=== PATIENT | male | born 1980 | race Caucasian/White ===

== ENCOUNTER 2016-09-01 15:17 | Emergency (ER) | payer OTHER ==
[2016-09-01 15:46] VITALS: BP 130/97
== END 2016-09-01 15:46 | disposition home or self-care (01) ==
LOC: ED 15:17
DX: T18.128A Food in esophagus causing other injury, initial encounter (principal); X58.XXXA Exposure to other specified factors, initial encounter; Y93.89 Activity, other specified; Y99.8 Other external cause status; Y92.89 Other specified places as the place of occurrence of the external cause

== ENCOUNTER 2017-04-26 09:27 | Emergency (ER) | payer OTHER ==
[~2017-04-26] VITALS: Ht 188 cm; Wt 98.4 kg
[2017-04-26 09:34] VITALS: BP 148/70; Ht 188 cm; Wt 98.4 kg
== END 2017-04-26 11:25 | disposition left against medical advice (07) ==
LOC: ED 09:27
DX: Z53.21 Procedure and treatment not carried out due to patient leaving prior to being seen by health care provider (principal)

== ENCOUNTER 2019-08-28 18:40 | Emergency (ER) | payer OTHER ==
[~2019-08-28] VITALS: Ht 185.4 cm; Wt 99.8 kg
[2019-08-28 18:50] VITALS: Ht 185.4 cm; Wt 99.8 kg
[2019-08-28 19:10] VITALS: BP 178/100
== END 2019-08-28 19:10 | disposition other institution (70) ==
LOC: ED 18:40
DX: Z02.89 Encounter for other administrative examinations (principal)